=== PATIENT | male | born 1960 | race Caucasian/White ===

== ENCOUNTER 2017-03-27 05:19 | Inpatient (IN) | payer OTHER ==
[~2017-03-27] VITALS: Ht 185.4 cm; Wt 119.2 kg
[~2017-03-27 05:19] MED LIST: AMLO10TA2 PO; CEPH-368 PO; HYDR-3240 PO; LISI-170 PO; MAGN30OR PO; METH750T87 PO
[2017-03-27] MEDS ORDERED: LACTATED RINGERS 1,000 ML IV SCH (06:08)
[2017-03-27 06:11] VITALS: BP 153/102
[2017-03-27] MEDS ORDERED: BUPIVACAINE/PF 0.25% ONE (06:23)
[2017-03-27] MEDS ORDERED: THROMBIN 5,000 UNIT VIAL TP ONE (06:24)
[2017-03-27] MEDS ORDERED: LIDOCAINE/PF 0.5% ,50ML ONE (06:24)
[2017-03-27] MEDS ORDERED: EPINEPHRINE 1 MG/ML, 1ML ONE (06:24)
[2017-03-27] MEDS ORDERED: VANCOMYCIN 1,000 MG ONE (06:24)
[2017-03-27] MEDS ORDERED: LIDOCAINE 1%, 2ML SQ PRN (06:30)
[2017-03-27] MEDS ORDERED: FENTANYL PF 250 MCG/5ML ONE (07:01)
[2017-03-27] MEDS ORDERED: MIDAZOLAM 1 MG/ML, 2ML ONE (07:01)
[2017-03-27] MEDS ORDERED: PROPOFOL 50 ML ONE ×3 (07:18→09:25)
[2017-03-27] MEDS ORDERED: EPHEDRINE 50 MG/ML, 1ML ONE (07:41)
[2017-03-27] MEDS ORDERED: PHENYLEPHRINE 10 MG/ML ONE (07:41)
[2017-03-27] MEDS ORDERED: HEPARIN 1,000 UNITS/ML, 30ML ONE (09:03)
[2017-03-27] MEDS ORDERED: PROMETHAZINE 12.5 MG SUPP PR PRN (09:30)
[2017-03-27] MEDS ORDERED: MEPERIDINE/PF 25MG/0.5ML IVPush PRN (09:30)
[2017-03-27] MEDS ORDERED: ALBUTEROL SULFATE 2.5 MG/3 ML NPPB PRN (09:30)
[2017-03-27] MEDS ORDERED: MIDAZOLAM 1 MG/ML, 2ML IV PRN (09:30)
[2017-03-27] MEDS ORDERED: ONDANSETRON 2MG/ML, 2ML IVPush PRN (09:30)
[2017-03-27] MEDS ORDERED: EPHEDRINE 50 MG/ML, 1ML IVPush PRN (09:30)
[2017-03-27] MEDS ORDERED: DIAZEPAM 5 MG/ML, 2ML IVPush PRN (09:30)
[2017-03-27] MEDS ORDERED: OXYcodone 5 MG/5 ML ORAL.SOL UDC PO PRN (09:30)
[2017-03-27] MEDS ORDERED: ACETAMINOPHEN 325 MG TABLET PO PRN (09:30)
[2017-03-27] MEDS ORDERED: LABETALOL 5MG/ML, 20ML IV PRN ×2 (09:30→13:30)
[2017-03-27] MEDS ORDERED: HYDROcodone/APAP 7.5-325MG/15ML UDC PO PRN (09:30)
[2017-03-27] MEDS ORDERED: METOPROLOL 1 MG/ML, 5ML IV PRN (09:30)
[2017-03-27] MEDS ORDERED: hydrALAzine 20 MG/ML, 1ML IV PRN (09:30)
[2017-03-27] MEDS ORDERED: HYDROmorphone 1 MG/ML, 1ML IV PRN (09:30)
[2017-03-27] MEDS ORDERED: FENTANYL PF 100 MCG/2ML IV PRN (09:30)
[2017-03-27] MEDS ORDERED: CEFAZOLIN 1,000 MG ONE ×2 (10:11→10:12)
[2017-03-27] MEDS ORDERED: ROCURONIUM 10 MG/ML,10ML ONE (10:11)
[2017-03-27] MEDS ORDERED: GLYCOPYRROLATE 0.2MG/1ML, 5ML ONE (10:11)
[2017-03-27] MEDS ORDERED: ONDANSETRON 2MG/ML, 2ML ONE (10:11)
[2017-03-27] MEDS ORDERED: SUCCINYLCHOLINE 20 MG/ML, 10ML ONE (10:11)
[2017-03-27] MEDS ORDERED: NEOSTIGMINE 1 MG/ML, 10ML ONE (10:11)
[2017-03-27] MEDS ORDERED: PROPOFOL 10 MG/ML, 20ML ONE (10:11)
[2017-03-27] MEDS ORDERED: DEXAMETHASONE 4 MG/ML, 1ML ONE (10:11)
[2017-03-27] MEDS ORDERED: ACETAMINOPHEN 650 MG/20.3 ML UDC ONE (11:47)
[2017-03-27] MEDS ORDERED: FENTANYL PF 100 MCG/2ML ONE (11:47)
[2017-03-27] MEDS ORDERED: OXYcodone 5 MG/5 ML ORAL.SOL UDC ONE (11:48)
[2017-03-27] MEDS ORDERED: DIPHENHYDRAMINE 50 MG CAPSULE PO PRN (13:30)
[2017-03-27] MEDS ORDERED: PROMETHAZINE 25 MG/ML, 1ML IM PRN (13:30)
[2017-03-27] MEDS ORDERED: BISACODYL 10 MG SUPP PR PRN (13:30)
[2017-03-27] MEDS ORDERED: ONDANSETRON 2MG/ML, 2ML IV PRN (13:30)
[2017-03-27] MEDS ORDERED: DIPHENHYDRAMINE 50 MG/ML, 1ML IVPush PRN (13:30)
[2017-03-27] MEDS ORDERED: MAGNESIUM HYDROXIDE 8%, 30ML UDC PO PRN (13:30)
[2017-03-27] MEDS ORDERED: METHOCARBAMOL 750 MG TABLET PO PRN (13:30)
[2017-03-27] MEDS ORDERED: HYDROcodone/APAP 5/325 TABLET PO PRN (13:30)
[2017-03-27] MEDS ORDERED: DIPHENHYDRAMINE 50 MG/ML, 1ML IM PRN (13:30)
[2017-03-27] MEDS ORDERED: morphine SULFATE 10 MG/ML, 1ML IV PRN (14:00)
[2017-03-27] MEDS: HYDROcodone/APAP 10/325 MG TABLET PO PRN ×2 (14:11→20:18)
[2017-03-27] MEDS: D5%-0.9% NACL+KCL 20MEQ 1,000 ML IV SCH (15:32)
[2017-03-27 17:05] VITALS: BP 147/83
[2017-03-27] MEDS: CEFAZOLIN PMX 2GM/50ML 50 ML IVPB SCH (17:55)
[2017-03-27 19:05] VITALS: BP 195/156
[2017-03-27] MEDS ORDERED: LISINOPRIL 20 MG TABLET PO SCH (21:00)
[2017-03-28] MEDS: CEFAZOLIN PMX 2GM/50ML 50 ML IVPB SCH ×2 (00:38→08:57)
[2017-03-28] MEDS: HYDROcodone/APAP 10/325 MG TABLET PO PRN ×4 (00:38→15:01)
[2017-03-28] MEDS: D5%-0.9% NACL+KCL 20MEQ 1,000 ML IV SCH ×2 (01:00→11:00)
[2017-03-28 03:39] VITALS: BP 147/79
[2017-03-28 05:32] LABS: BASOPHILS # (AUTO) 0.02 x10^3/uL (0-0.1); BASOPHILS % (AUTO) 0 % (0-1); EOSINOPHILS # (AUTO) 0.02 x10^3/uL (0-0.4); EOSINOPHILS % (AUTO) 0 % (1-7); LYMPHOCYTES # (AUTO) 0.75 x10^3/uL (1-3.4); LYMPHOCYTES % (AUTO) 7 % (22-44); MD NO; MEAN CORPUSCULAR HEMOGLOBIN 29.6 pg (27.5-34.5); MEAN CORPUSCULAR HGB CONC 33.6 g/dL (33.2-36.2); MEAN CORPUSCULAR VOLUME 88.1 fL (81-97); MONOCYTES # (AUTO) 0.71 x10^3/uL (0.2-0.8); MONOCYTES % (AUTO) 7 % (2-9); NEUTROPHILS # (AUTO) 9.21 x10^3/uL (1.8-6.8); NEUTROPHILS % (AUTO) 86 % (42-75); PLATELET COUNT 209 x10^3/uL (130-400); RED BLOOD COUNT 3.93 x10^6/uL (4.38-5.82); RED CELL DISTRIBUTION WIDTH 14.1 % (9.4-14.8)
[2017-03-28 05:50] LABS: CHLORIDE 108 mmol/L (98-107)
[2017-03-28 06:00] LABS: ANION GAP 9 mmol/L (5-15); CALCIUM 8.1 mg/dL (8.5-10.1); CREATININE 1.13 mg/dL (0.7-1.3)
[2017-03-28 08:15] VITALS: BP 128/80
[2017-03-28] MEDS ORDERED: SENNA/DOCUSATE TABLET PO SCH (09:00)
[2017-03-28] MEDS ORDERED: HYDR-3307 PO (10:29)
[2017-03-28] MEDS ORDERED: CEPH-368 PO (10:29)
[2017-03-28] MEDS ORDERED: METH750T87 PO (10:29)
[2017-03-28] MEDS ORDERED: MAGNESIUM HYDROXIDE 8%, 30ML UDC PO ONE (11:00)
[2017-03-28 13:50] VITALS: BP 121/74
== END 2017-03-28 17:45 | disposition home or self-care (01) | DRG 479 ==
LOC: ORIP 05:19 → 4NOR 12:53
PROVIDERS: ADMIT Orthopaedic Surgery Orthopaedic Surgery of the Spine; ATTEND Orthopaedic Surgery Orthopaedic Surgery of the Spine
PROC: 0PJY0ZZ Inspection of Upper Bone, Open Approach (ICD-10-PCS; principal; 2017-03-27 07:30)
DX: M96.0 Pseudarthrosis after fusion or arthrodesis (principal); E66.01 Morbid (severe) obesity due to excess calories; M48.02 Spinal stenosis, cervical region; I10 Essential (primary) hypertension; Z53.8 Procedure and treatment not carried out for other reasons; M54.12 Radiculopathy, cervical region; Y83.8 Other surgical procedures as the cause of abnormal reaction of the patient, or of later complication, without mention of misadventure at the time of the procedure; Y82.8 Other medical devices associated with adverse incidents; Z68.34 Body mass index [BMI] 34.0-34.9, adult
CPT/HCPCS: 36415; 80048; 85025; 95938; 95941; C1713; J0171; J0690; J1100; J1644; J2001; J2250; J2405; J2704; J2710; J3010; J3370; J3490; J0330; J2370; J3480; J7120